=== PATIENT | male | born 1930 | race Caucasian/White ===

== ENCOUNTER → 2016-09-19 | Outpatient (CLI) | payer MEDICARE ==
[~2016-09-19] MED LIST: ADVAIR 250/5028 PUFF IN; ADVAIR DISKUS 21 DSK IH; ASPIRIN325 M1 PO; ASPIRIN81 MG PO; AXID150 M1 PO; AZOR 10 MG-40 M1 TAB PO; BACLOFEN 10MG T10 MG PO; BACTRIM DS 8001 TAB PO; CATAPRES GENER0.1 MG PO; CEFTIN500 MG PO; CETIRIZINE HCL10 MG PO; CLONIDINE HYDR0.1 MG NG; CLONIDINE0.1 MG PO; CLOPIDOGREL75 M1 PO; CYCLOBENZAPRINE10 MG PO; DOMPERIDONE1 POW; DUONEB 3 MG/3 ML3 ML IH; HYDROCODONE1 TABLET PO; IMDUR 60MG. TAB60 MG PO; ISOSORBIDE MONO60 MG PO; LISINOPRIL 5MG T5 MG PO; METOPROLOL SUCC50 M1 PO; NAPROSYN 500MG500 MG PO; NITROGLYCERIN0.4 MG SL; PANTOPRAZOLE SO40 MG PO; PLAVIX75 MG PO; PREVACID 30MG C30 M1 OR; PREVACID 30MG C30 M1 PO; PROAIR HFA0.09 MG/AC IH; PROVENTIL0.09 MG/A1 IH; RANEXA1000 M1 PO; RANEXA500 M1 PO; SIMVASTATIN40 MG PO; TOPROL XL 100M100 MG PO; TOPROL XL 25MG25 MG PO; VENTOLIN H0.09 MG/AC IH; VESICARE10 MG PO; VICODIN 5/500 T1 TAB PO; [UNRECOGNIZED DRUG - OTHER] PO
--- NOTE | 2016-09-19 21:45 | RADIOLOGY REPORT PS360 ---
ANKLE-RT-3 VIEWS Ordering Physician: Delano Rowell MD Patient Age: 86 years: Male HISTORY: HEALING OF RT ANKLE FXfollow-up fracture TECHNIQUE: 3 views right ankle COMPARISON 09/13/2016 FINDINGS Fiberglas cast secures some of the osseous detail. Again the oblique fracture at the distal fibula just above the lateral malleolus is again noted with minor cortical step-off laterally. Stable position with minor cortical step-off laterally suspect early healing. The ankle joint appears intact with medial and posterior malleolus unremarkable. IMPRESSION: Fracture distal fibula is stable position with hint of ealing. Fiberglas cast in place
== END ==
LOC: RAD 08:40
DX: S82.61XD Displaced fracture of lateral malleolus of right fibula, subsequent encounter for closed fracture with routine healing (principal)